=== PATIENT | male | born 1995 | race African-American/Black ===

== ENCOUNTER 2020-04-19 10:33 | Emergency (ER) | payer OTHER ==
[~2020-04-19] VITALS: Ht 177.8 cm; Wt 88.1 kg
[2020-04-19] MEDS ORDERED: MUPI2OI TOP (12:29)
[2020-04-19 12:46] VITALS: BP 140/80
== END 2020-04-19 12:51 | disposition home or self-care (01) ==
LOC: M ED 10:33
DX: L98.9 Disorder of the skin and subcutaneous tissue, unspecified (principal)